=== PATIENT | female | born 1990 | race Two or more races ===

== ENCOUNTER 2016-08-28 15:57 | Emergency (ER) | payer SELFPAY ==
[2016-08-28] MEDS ORDERED: FAMOTIDINE 20 MG TABLET PO ONE (16:22)
[2016-08-28] MEDS ORDERED: EPINEPHRINE INJ/PF 1 MG/1 ML AMPULE SUBCUT PRN (16:22)
--- NOTE | 2016-08-28 16:25 | ER Document Report ---
ED Medical Screen (RME) - General Chief Complaint: Allergic Reaction Stated Complaint: ALLERGIC REACTION/RASH,ITCHING Time Seen by Provider: 08/28/16 16:21 Notes: This 26-year-old female patient comes emergency room with acute allergic reaction. 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 She took 2 Benadryl prior to arrival. She has hives all over her face and forearms. No other skin is exposed at this time. There is no respiratory problem. I have greeted and performed a rapid initial assessment of this patient. A comprehensive ED assessment and evaluation of the patient, analysis of test results and completion of the medical decision making process will be conducted by additional ED providers. TRAVEL OUTSIDE OF THE [place] IN LAST 30 DAYS: No Past Medical History Renal/ Medical History: Denies: Hx Peritoneal Dialysis Physical Exam - Vital signs Vitals: Temp Pulse Resp BP Pulse Ox 97.8 F 65 18 144/91 H 97 08/28/16 16:03 08/28/16 16:03 08/28/16 16:03 08/28/16 16:03 08/28/16 16:03 Course - Vital Signs Vital signs: Temp Pulse Resp BP Pulse Ox 97.8 F 65 18 144/91 H 97 08/28/16 16:03 08/28/16 16:03 08/28/16 16:03 08/28/16 16:03 08/28/16 16:03
[2016-08-28] MEDS ORDERED: PREDNISONE 20 MG TABLET PO ONE (16:41)
--- NOTE | 2016-08-28 17:43 | ER Document Report ---
ED Allergic Reaction - General Chief Complaint: Allergic Reaction Stated Complaint: ALLERGIC REACTION/RASH,ITCHING Time Seen by Provider: 08/28/16 16:21 Notes: This 26-year-old female patient comes emergency room with acute allergic reaction with hives and itching. 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 Soon afterwards she began to break out on her hands and forearms and face. She took 2 Benadryl prior to arrival. She was not wearing gloves at the time. TRAVEL OUTSIDE OF THE [place] IN LAST 30 DAYS: No - Related Data Allergies/Adverse Reactions: No Known Allergies Allergy (Unverified 08/28/16 17:09) Home Medications: Current Home Medications No Home Medications 08/28/16 [History] Past Medical History - General Information source: Patient - Social History Smoking Status: Smoker,Current Status Unk Chew tobacco use (# tins/day): No Smoking Education Provided: No Frequency of alcohol use: None Drug Abuse: None Lives with: Friend Family History: Reviewed & Not Pertinent - Medical History Medical History: Negative Psychiatric Medical History: Reports: None Surgical Hx: Negative Review of Systems - Review of Systems Constitutional: No symptoms reported EENT: No symptoms reported Cardiovascular: No symptoms reported Respiratory: No symptoms reported Gastrointestinal: No symptoms reported Genitourinary: No symptoms reported Female Genitourinary: No symptoms reported Musculoskeletal: No symptoms reported Skin: No symptoms reported Hematologic/Lymphatic: No symptoms reported Neurological/Psychological: No symptoms reported Physical Exam - Vital signs Vitals: Temp Pulse Resp BP Pulse Ox 97.8 F 65 18 144/91 H 97 08/28/16 16:03 08/28/16 16:03 08/28/16 16:03 08/28/16 16:03 08/28/16 16:03 Interpretation: Normal - General General appearance: Alert, Anxious In distress: Mild - HEENT Head: Normocephalic, Atraumatic, Other - Face is covered with urticaria Eyes: Normal Pupils: PERRL Pharynx: Normal. No: Uvular edema - Respiratory Respiratory status: No respiratory distress Breath sounds: Normal - Cardiovascular Rhythm: Regular - Abdominal Inspection: Normal - Back Back: Normal - Extremities General upper extremity: Other - Urticarial hives over the forearms and hands General lower extremity: Normal inspection - Neurological Neuro grossly intact: Yes Cognition: Normal Orientation: AAOx4 [place] Coma Scale Eye Opening: Spontaneous [place] Coma Scale Verbal: Oriented [place] Coma Scale Motor: Obeys Commands [place] Coma Scale Total: 15 Speech: Normal Motor strength normal: LUE, RUE, LLE, RLE Sensory: Normal - Psychological Associated symptoms: Normal affect, Normal mood - Skin Skin Temperature: Warm Skin Moisture: Dry Skin Color: Normal Character of irregularity: Urticarial Course - Re-evaluation Re-evalutation: 08/28/16 17:57 Hives cleared up after the epinephrine and Pepcid. She was watched for approximately 90 minutes. - Vital Signs Vital signs: Temp Pulse Resp BP Pulse Ox 98.4 F 87 20 127/66 H 98 08/28/16 17:50 08/28/16 17:50 08/28/16 17:50 08/28/16 17:50 08/28/16 17:50 Discharge - Discharge Clinical Impression: Urticaria Allergic reaction to chemical substance Qualifiers: Encounter type: initial encounter Injury intent: accidental or unintentional Qualified Code(s): T65.91XA - Toxic effect of unspecified substance, accidental (unintentional), initial encounter Condition: Stable Disposition: HOME, SELF-CARE Additional Instructions: Acute Allergic Reaction: Your symptoms are due to an allergic reaction. Allergy can cause hives, swelling of the hands, feet, and face, hoarseness, and difficulty swallowing or breathing. It may be due to exposure to medication, animal dander, foods, infection, or insect bites. Medication is a common cause, even when prior use of this same medication caused no problems. Acute treatment may include adrenalin and antihistamines. Usually, the specific allergic agent can't be identified unless repeated episodes occur. Home treatment includes the following: (1) Stop any suspicious medications. This will be discussed with you. (2) Oral antihistamines for the next four to five days. Example, diphenhydramine (Benadryl) every four hours. (3) You may also use cimetidine (Tagamet), ranitidine (Zantac), or famotidine (Pepcid) every four hours if diphenhydramine is not controlling itching and hives. (4) Avoid aspirin until the hives completely disappear. (5) Avoid hot bahs or showers until the hives are completely gone. Call the doctor if faintness, difficulty swallowing, tightness in the chest, or wheezing occurs.
[2016-08-28 17:56] VITALS: BP 127/66
== END 2016-08-28 17:50 | disposition home or self-care (01) ==
LOC: ER 15:57
DX: L50.0 Allergic urticaria (principal)
CPT/HCPCS: 99283; 96372; J0171; J7512